=== PATIENT | male | born 1985 | race Caucasian/White ===

== ENCOUNTER 2018-02-01 09:30 | Outpatient (RCR) | payer OTHER, SELFPAY | END 2018-02-01 15:00 | disposition home or self-care (01) | LOC: PT 09:30 | PROVIDERS: Visit Provider Orthopaedic Surgery | DX: M22.8X2 Other disorders of patella, left knee (principal) | CPT/HCPCS: 97033; 97110; 97140 ==

== ENCOUNTER → 2020-07-25 08:51 | Outpatient (POV) | payer OTHER, SELFPAY ==
[2020-07-25 09:20] VITALS: BP 132/85; PULSE 85; RESP 18; TEMP 36.9; O2SAT 98; BMI 25.5
--- NOTE | 2020-07-25 09:58 | HMH.PMCON ---
Assessment and Plan (1) Generalized muscle ache Status: Chronic Category: Medical Code(s): M79.10 - Myalgia, unspecified site (2) Generalized joint pain Status: Chronic Category: Medical Code(s): M25.50 - Pain in unspecified joint - Assessment and plan all Dx Assessment and Plan for all problems:: Patient I did have a discussion concerning implanted devices. At this point I do not feel that any of the injective therapy or implanted devices would be beneficial to the patient. His pain is more joint and muscle related. He is currently on Percocet as prescribed by Dr. Meyer. The patient may benefit from an increase in his Percocet 2 every 4 hours rather than daily. He and I also discussed possible changing Flexeril to Robaxin. These may be options that may benefit him. He does understand that we are not able to prescribe any oral medications to him without further diagnoses, however, we can make recommendations since he is continuing to have significant pain without relief from daily Percocet. Has been instructed to contact the clinic in the future if he has any concerns. Dr. Hay has reviewed this note and agrees with this plan of care. This note was dictated using voice recognition software and make contain errors or omissions. HPI - Data of Consult Patient: new to practice Consult date: 07/25/20 Requesting Physician: Ani Chun APRN Primary Care Provider: Moni Meyer - Consult Narrative Reason for consult: Generalized body pain History of present illness: Mr. Goss is a 34 year old male who presents today for consultation for generalized body pain. Patient says he has pain throughout his entire body, primarily to his joints. He denies any type of pain. He says that this pain is been ongoing for the last 2 to 3 years. He has seen numerous physicians and providers who have done a full work-up on the patient. Unfortunately, he has had an unremarkable work-up at this point. Patient does work in a strenuous job and says that his joints are swollen and aching when he comes home in the evenings. He rates his pain a 7 to an 8 out of 10. Patient is currently managed with Percocet 10 mg 1 tablet p.o. daily. He is also managed with Flexeril. He says that this does give him some relief, however, on the days that he is working, his pain intensifies after about the 4-hour gina. Patient says on the days that he is not doing as much work, he tends to be able to get relief throughout the day up to 6 hours with the medication. Flexeril does seem to help him somewhat, but he does have some residual muscle aches. Patient is very frustrated because he is spent many hours seeing providers and many missed days of work to try to find out what is going on, however, nothing has been found at this point. Patient I did discuss possibility of autoimmune disorders, however, he has seen a national facilities manager who again has deemed him an unremarkable work-up. The patient does say when he did have labs drawn in the past, he has had flareups at that time, but did still have negative results. CC: Ani Chun APRN [facility] History I have reviewed the patient's past medical history: Yes Medical History: Denies:: Cancer, Diabetes Mellitus Type 1, Diabetes Mellitus Type 2, MRSA *Have you ever received a pneumonia vaccine?: No *Have you received a flu vaccine this season?: Yes Laterality Cases: Left: Arthroscopy Knee Amputation: No Fractures: No - *Social History Smoking Status: Current every day smoker Tobacco Type: cigarettes # Packs/Day (cigarettes): 1 Alcohol Intake: never *Occupational Status:: employed Housing: house Household Members: spouse *Travel in the last 8 weeks: None Family Hx:: Unable to obtain Review of Systems - Review of Systems Review of Systems General: No recent weight changes, no fever, no sleep disturbances Respiratory: No cough, no shortness of air, no recurring pulmonary infections Card
== END ==
PROVIDERS: PCP Family Medicine; Visit Provider Clinical Nurse Specialist Family Health
DX: M79.10 Myalgia, unspecified site (principal); M25.50 Pain in unspecified joint
CPT/HCPCS: 99212

== ENCOUNTER 2020-11-12 10:00 | Outpatient (RCR) | payer OTHER, SELFPAY | END 2020-12-09 15:00 | disposition home or self-care (01) | LOC: PT.CARL 10:00 | PROVIDERS: PCP Family Medicine; Visit Provider Nurse Practitioner Family | DX: M25.571 Pain in right ankle and joints of right foot; S86.301D Unspecified injury of muscle(s) and tendon(s) of peroneal muscle group at lower leg level, right leg, subsequent encounter; M65.171 Other infective (teno)synovitis, right ankle and foot | CPT/HCPCS: 97014; 97110; 97163; G0283 ==

== ENCOUNTER 2021-06-19 13:54 | Emergency (ER) | payer OTHER, SELFPAY ==
[2021-06-19 14:15] VITALS: BP 141/87; PULSE 96; RESP 18; TEMP 36.9; O2SAT 99; BMI 29.0
--- NOTE | 2021-06-19 14:50 | HMH.EDUTC ---
[facility] Disposition Clinical Impression: Exposure to COVID-19 virus Disposition: Home, Self-Care Condition on Discharge: Good Instructions: DI for COVID-19 (Suspected or Confirmed ), Preventing the Spread of Coronavirus Discharge Instructions Additional Instructions: Drink plenty of fluids. Take tylenol for pain or fever. Return if you begin to have difficulty breathing. Follow up with your regular doctor. GO TO THE ER FOR ANY WORSENING SYMPTOMS Quarantine until you know the results of your covid-19 test. If it is positive, the health department should call you and give you further instructions about your length of Quarantine and other things. Notify your school or workplace of your results and follow their instructions regarding return to work/school. Referrals: Martell Meyer [Primary Care Provider] - Time of Disposition: 14:57 Medical Decision Making - Medical Records Medical records reviewed: No: I reviewed the patient's medical records. - Pedro Inquiry Pt receiving controlled substance: No Vital Signs: 06/19/21 14:15 06/19/21 15:04 Temperature 98.4 F 98.4 F Temperature Source Oral Pulse Rate 96 H Pulse Rate [Right Brachial] 96 H Respiratory Rate 18 18 Blood Pressure 141/87 H Blood Pressure [Right Arm] 141/87 H Blood Pressure Mean [Right Arm] 105 Blood Pressure Source [Right Arm] Automatic Cuff Blood Pressure Position [Right Arm] Sitting 02 Sat by Pulse Oximetry 99 Oxygen Delivery Method Room Air [facility] HPI - General Stated complaint: covid test/symptoms Time Seen by Provider: 06/19/21 14:50 Mode of Arrival: Ambulatory Source of Information: Patient Limitations: No Limitations Description of Symptoms (Recalled from Triage Doc. by RN): COVID TEST D/T EXPOSURE BY DAUGHTER. DENIES SYMPTOMS HEENT Symptoms (Recalled from RN notes): No Resp Symptoms (Recalled from RN notes): No Skin Symptoms (Recalled from RN notes): No MS Symptoms (Recalled from RN notes): No Functional Status (Recalled from RN notes): WNL - History of Present Illness Provider Complaint: He has been exposed to covid-19 in his home. He denies any symptoms. He has not been vaccinated. He needs to be checked for covid-19 for his work. - Worker's Comp Is this a Worker's Comp case?: No [facility] History - Hepatitis A Screen Drug use history?: No High risk sexual behaviors?: No History of sexually transmitted infection?: No Currently employed?: No Childcare worker?: No Do you have indoor plumbing?: Yes Do you have electricity?: Yes Attestation statement:: This patient has been screened for Hepatitis A risk factors. I have reviewed the patient's past medical history: Yes Medical History: Denies:: Cancer, Diabetes Mellitus Type 1, Diabetes Mellitus Type 2, MRSA Laterality Cases: Left: Arthroscopy Knee Amputation: No Fractures: No - Social History Smoking Status: Current every day smoker Tobacco Type: cigarettes # Packs/Day (cigarettes): 1 Alcohol Intake: never Occupational Status: employed Housing: house Household Members: spouse Family Hx:: Unable to obtain ROS Obtained: Yes All systems reviewed & no additional complaints - Constitutional Constitutional: Reports as per HPI - Eyes Eyes: Denies eye discharge - ENT Ears, Nose, Mouth, and Throat: Reports as per HPI - Cardiovascular Cardiovascular: Denies chest pain - Respiratory Respiratory: Denies chest congestion, Denies cough, Denies dyspnea, Denies stridor, Denies wheezing Physical Exam - General General appearance: alert, in no apparent distress - Head Head exam: atraumatic, normocephalic, normal inspection - Eye Eye exam: Present: normal appearance, PERRL, EOMI - ENT ENT exam: Present: normal exam, mucous membranes moist, TM's normal bilaterally, normal external ear exam - Expanded ENT Exam TM/Canal exam: Bilateral TM: erythema, bulging Mouth exam: Present: normal external inspection Teeth exam: Present: normal inspect
[2021-06-19 15:04] VITALS: BP 141/87; PULSE 96; RESP 18; TEMP 36.9; O2SAT 99
== END 2021-06-19 15:09 | disposition home or self-care (01) ==
PROVIDERS: Emergency Provider Nurse Practitioner Family; PCP Family Medicine
DX: Z20.822 Contact with and (suspected) exposure to COVID-19 (principal); F17.210 Nicotine dependence, cigarettes, uncomplicated
CPT/HCPCS: 99202; G0463; U0003

== ENCOUNTER 2021-10-11 13:44 | Emergency (ER) | payer OTHER, SELFPAY ==
[2021-10-11 13:44] VITALS: BP 129/72; PULSE 107; RESP 22; TEMP 36.8; O2SAT 92; BMI 27.3
--- NOTE | 2021-10-11 14:10 | XR_ITS ---
PROCEDURE INFORMATION: Exam: XR Chest Exam date and time: 10/11/2021 2:10 PM Age: 36 years old Clinical indication: Shortness of breath; Additional info: DEBBY Greco TECHNIQUE: Imaging protocol: XR of the chest. Views: 2 views. COMPARISON: No relevant prior studies available. FINDINGS: Lungs: There are bilateral patchy pulmonary infiltrates more prominent the left than right consistent with an atypical pneumonia including viral pneumonia. Pleural spaces: No pleural effusion. No pneumothorax. Heart/Mediastinum: No cardiomegaly. Bones/joints: Unremarkable. IMPRESSION: There are bilateral patchy pulmonary infiltrates more prominent the left than right consistent with an atypical pneumonia including viral pneumonia.
[2021-10-11 14:18] LABS: Basophils # 0.1 K/mm3 (0-0.2); Basophils % 1.3 % (0.1-2.0); Eosinophils % 0.1 % (0.1-12.0); Hematocrit 44.7 % (42.0-52.0); Hemoglobin 14.6 g/dL (14.1-18.0); Lymphocytes # 0.7 K/mm3 (0.7-4.5); Lymphocytes % 13.3 % (10-50); Mean Corpuscular HGB Conc 32.7 g/dL (31.8-35.4); Mean Corpuscular Hemoglobin 30.2 pg (27.0-31.2); Mean Corpuscular Volume 92.4 fl (80-94); Mean Platelet Volume 9.5 fl (7.4-10.4); Monocytes # 0.1 K/mm3 (0.1-1.0); Monocytes % 2.6 % (1.7-9.3); Neutrophils % 82.7 % (37.0-80.0); Platelet Count 173 K/mm3 (142-424); Red Blood Count 4.84 M/mm3 (4.60-6.20); Red Cell Distribution Width 13.6 % (11.5-17.5); White Blood Count 4.9 K/mm3 (4.8-10.8)
[2021-10-11 14:21] LABS: Chloride 99 mmol/L (98-107); Sodium 136 mmol/L (136-145)
[2021-10-11 14:22] LABS: Potassium 3.4 mmoL/L (3.5-5.1)
[2021-10-11 14:24] LABS: Alanine Aminotransferase 40 U/L (12-78); Albumin Level 3.7 g/dl (3.5-5.0); Albumin/Globulin Ratio 1.4 (1.1-1.8); Alkaline Phosphatase 147 U/L (38-126); Anion Gap 12.4 mEq/L (5-15); Aspartate Amino Transferase 65 U/L (17-59); Bilirubin,Total 0.5 mg/dl (0.2-1.3); Blood Urea Nitrogen 6 mg/dl (9-20); Carbon Dioxide 28 mmol/L (22.0-30.0); Creatinine Clearance Estimated 131 mL/min (50-200); Estimated Glomerular Filt Rate 95 ml/min (>60); GFR (African American) 116 ML/MIN (>60); Globulin 2.6 g/dL (1.3-3.2); Total Protein,Serum 6.3 g/dl (6.3-8.2)
[2021-10-11 14:25] LABS: Calcium 8.4 mg/dl (8.4-10.2); Glucose 134 mg/dl (74-100)
[2021-10-11 14:30] VITALS: PULSE 91; O2SAT 93
[2021-10-11 14:36] LABS: Influenza A, PCR Not Detected (NotDetected); Influenza B, PCR Not Detected (NotDetected)
[2021-10-11 15:00] VITALS: PULSE 111; O2SAT 94
[2021-10-11 15:30] VITALS: PULSE 98; O2SAT 94
[2021-10-11 15:33] LABS: Coronavirus 19, PCR Detected (NotDetected)
[2021-10-11 16:53] VITALS: PULSE 92; O2SAT 93
--- NOTE | 2021-10-11 17:21 | HMH.EDGENADL ---
ED Disposition Clinical Impression: Pneumonia due to COVID-19 virus Disposition: Home, Self-Care Condition on Discharge: Fair Instructions: DI for COVID-19 (Suspected or Confirmed ) Additional Instructions: Take Decadron as prescribed. You may continue Levaquin as prescribed by your primary care provider. Albuterol inhaler as needed 2 puffs every 6 hours for shortness of breath. Return to the emergency department if worsening shortness of breath. COVID-19 Isolation: Isolate yourself for a MINIMUM of 10 days from onset of symptoms: What to do: Monitor your symptoms. If you have an emergency warning sign (including worsening trouble breathing), seek emergency medical care immediately. Stay in a separate room from other household members, if possible. Use a separate bathroom, if possible. Avoid contact with other members of the household and pets. Don?t share personal household items, like cups, towels, and utensils. Wear a mask when around other people if able. You can be around others AFTER: 10 days since symptoms first appeared AND 24 hours with no fever without the use of fever-reducing medications AND Other symptoms of COVID-19 are improving Prescriptions: dexAMETHasone [Decadron] 6 mg PO DAILY #7 tab Transmission Status: Received by [id number] Referrals: Martell Meyer [Primary Care Provider] - - Critical Care Critical Care Time: No Attestation: On 10/11/21, the high probability of a clinically significant, sudden or life threatening deterioration of the following system(s) required my full and direct attention, intervention and personal management. The time I documented below is in addition to time spent performing reported procedures but includes the following listed in this critical care notation. Medical Decision Making - Pedro Inquiry Pt receiving controlled substance: No Vital Signs: 10/11/21 13:44 10/11/21 14:30 10/11/21 15:00 Temperature 98.2 F Temperature Source Oral Pulse Rate [Right Radial] 107 H 91 H 111 H Respiratory Rate 22 Blood Pressure [Right Arm] 129/72 Blood Pressure Mean [Right Arm] 91 Blood Pressure Source [Right Arm] Automatic Cuff Blood Pressure Position [Right Arm] Sitting 02 Sat by Pulse Oximetry 92 L 93 L 94 L Oxygen Delivery Method Room Air Room Air Room Air 10/11/21 15:30 10/11/21 16:53 Temperature Temperature Source Pulse Rate [Right Radial] 98 H 92 H Respiratory Rate Blood Pressure [Right Arm] Blood Pressure Mean [Right Arm] Blood Pressure Source [Right Arm] Blood Pressure Position [Right Arm] 02 Sat by Pulse Oximetry 94 L 93 L Oxygen Delivery Method Room Air Room Air - Lab Data Lab Results 10/11/21 14:05: WBC 4.9, RBC 4.84, Hgb 14.6, Hct 44.7, MCV 92.4, MCH 30.2, MCHC 32.7, RDW 13.6, Plt Count 173, MPV 9.5, Neut % (Auto) 82.7 H, Lymph % (Auto) 13.3, [place] % (Auto) 2.6, Eos % (Auto) 0.1, Baso % (Auto) 1.3, Neut # (Auto) 4.0, Lymph # (Auto) 0.7, [place] # (Auto) 0.1, Eos # (Auto) 0.0, Baso # (Auto) 0.1 10/11/21 14:05: Sodium 136, Potassium 3.4 L, Chloride 99, Carbon Dioxide 28, Anion Gap 12.4, BUN 6 L, Creatinine 0.90, Estimated Creat Clear 131, Estimated GFR 95, Est GFR ( Amer) 116, Glucose 134 H, Calcium 8.4, Total Bilirubin 0.5, AST 65 H, ALT 40, Alkaline Phosphatase 147 H, Total Protein 6.3, Albumin 3.7, Globulin 2.6, Albumin/Globulin Ratio 1.4 10/11/21 14:25: SARS-CoV-2 (PCR) Detected A, Influenza A Untype (PCR) Not detected, Influenza Type B (PCR) Not detected Result diagrams: 10/11/21 14:05 10/11/21 14:05 Orders (Tests/Meds): ED MEDICATIONS Generic Name Dose Route Start Last Admin Trade Name Freq PRN Reason Stop Dose Admin Albuterol Sulfate 2 puffs 10/11/21 17:35 Albuterol-Hfa 90mcg/Puff Inhaler 8gm IH 11/10/21 17:34 Q6HP PRN Shortness Of Breath Discontinued Medications Generic Name Dose Route Start Last Admin Trade Name Freq PRN Reason Stop Dose A
[2021-10-11 18:30] VITALS: BP 142/74; PULSE 89; RESP 28; TEMP 36.6; O2SAT 94
== END 2021-10-11 18:31 | disposition home or self-care (01) ==
PROVIDERS: Emergency Provider Emergency Medicine; PCP Family Medicine
DX: U07.1 COVID-19 (principal); J12.82 Pneumonia due to coronavirus disease 2019; F17.210 Nicotine dependence, cigarettes, uncomplicated
CPT/HCPCS: 71046; 80053; 85025; 96365; 96375; 99283; C9803; U0003; U0005